=== PATIENT | male | born 1955 | race Caucasian/White ===

== ENCOUNTER 2017-03-18 18:39 | Emergency (ER) | payer BC, SELFPAY ==
[2017-03-18 19:30] VITALS: BP 119/76; PULSE 61; RESP 20; TEMP 37.1; O2SAT 97; BMI 27.3
--- NOTE | 2017-03-18 20:11 | HMH.EDUTC ---
[facility] [place] Clinical Impression: Flu Disposition: Home, Self-Care Condition on Discharge: Good Instructions: DI for Nausea -- Adult, Influenza Additional Instructions: Increase fluids Rest Gregorio diet follow up with primary care tomorrow If symptoms worsen or do not improve return or be seen in the ER Prescriptions: Oseltamivir Phosphate [Tamiflu 75mg Capsule] 75 mg PO BID #10 cap Referrals: Ej Lopez MD [Primary Care Provider] - Medical Decision Making Vital Signs: 03/18/17 19:30 Temperature 98.7 F Temperature Source Temporal Artery Scan Pulse Rate [Brachial] 61 Respiratory Rate 20 Blood Pressure [Right Arm] 119/76 Blood Pressure Mean [Right Arm] 90 Blood Pressure Source [Right Arm] Automatic Cuff Blood Pressure Position [Right Arm] Sitting 02 Sat by Pulse Oximetry 97 Oxygen Delivery Method Room Air - Lab Data Lab Results 03/18/17 20:15: WBC 4.1 L, RBC 4.54 L, Hgb 13.9 L, Hct 40.0 L, MCV 88.2, MCH 30.7, MCHC 34.8, RDW 12.4, Plt Count 175, MPV 7.4, Neut % (Auto) 80.8 H, Lymph % (Auto) 11.9, [place] % (Auto) 5.1, Eos % (Auto) 1.4, Baso % (Auto) 0.8, Neut # (Auto) 3.3, Lymph # (Auto) 0.5 L, [place] # (Auto) 0.2, Eos # (Auto) 0.1, Baso # (Auto) 0.0 03/18/17 20:15: Sodium 134 L, Potassium 4.1, Chloride 97 L, Carbon Dioxide 26, Anion Gap 15.1 H, BUN 18, Creatinine 1.25, Estimated Creat Clear 76, Estimated GFR 59, Est GFR ( Amer) 72, Glucose 109 H, Calcium 8.6, Total Bilirubin 0.5, AST 38 H, ALT 31, Alkaline Phosphatase 81, Total Protein 7.3, Albumin 3.6, Globulin 3.7 H, Albumin/Globulin Ratio 1.0 L 03/18/17 20:36: Influenza Type A Ag Positive A, Influenza Type B Ag Negative Result diagrams: 03/18/17 20:15 03/18/17 20:15 - Madan Inquiry Pt receiving controlled substance: No [facility] [place]PI - General Chief complaint: Urgent [facility] Stated complaint: fever,weakness Time Seen by Provider: 03/18/17 20:11 Mode of Arrival: Ambulatory Source of Information: Patient Limitations: No Limitations Description of Symptoms (Recalled from Triage Doc. by RN): H/A, CONGESTION, DIZZY, BLURRED VISION HEENT Symptoms (Recalled from RN notes): Yes Resp Symptoms (Recalled from RN notes): No Skin Symptoms (Recalled from RN notes): No MS Symptoms (Recalled from RN notes): No Functional Status (Recalled from RN notes): NA - History of Present Illness Provider Complaint: 61-year-old male presents for nasal congestion, sinus pressure, nausea, vomiting ?1, blurred vision and dizzy. Patient states nausea since yesterday states his only vomited one time and it was drainage. Denies fever or headache at this time. - Related Data Previous Rx's Medication Instructions Recorded Oseltamivir Phosphate [Tamiflu 75 mg PO BID #10 cap 03/18/17 75mg Capsule] Allergies Allergy/AdvReac Type Severity Reaction Status Date / Time No Known Allergies Allergy Verified 03/18/17 19:33 - Worker's Comp Is this a Worker's Comp case?: No [facility] History I have reviewed the patient's past medical history: Yes - *Social History Alcohol Intake: never - Psychiatric History Expresses thoughts of harming self/others: None Suicide Plan Description: No Plan ROS Obtained: Yes All systems reviewed & no additional complaints - Constitutional Constitutional: Reports system reviewed and no additional complaints, except as docu, Reports body ache, Reports chills, Reports fever(s), Reports malaise - Eyes Eyes: Reports system reviewed and no additional complaints, except as docu, Reports blurry vision - ENT Ears, Nose, Mouth, and Throat: Reports system reviewed and no additional complaints, except as docu, Reports as per HPI, Reports headache(s), Reports nasal discharge, Reports sinus pain, Reports sinus pressure - Cardiovascular Cardiovascular: Reports system reviewed and no additional complaints, except as docu - Respiratory Respiratory: Yes system reviewed and no additional complaints, except as docu - G
--- NOTE | 2017-03-18 20:14 | ED_ITS ---
[facility] [place] Clinical Impression: Flu Disposition: Home, Self-Care Condition on Discharge: Good Instructions: DI for Nausea -- Adult, Influenza Additional Instructions: Increase fluids Rest Gregorio diet follow up with primary care tomorrow If symptoms worsen or do not improve return or be seen in the ER Prescriptions: Oseltamivir Phosphate [Tamiflu 75mg Capsule] 75 mg PO BID #10 cap Referrals: Ej Lopez MD [Primary Care Provider] - Medical Decision Making Vital Signs: 03/18/17 19:30 Temperature 98.7 F Temperature Source Temporal Artery Scan Pulse Rate [Brachial] 61 Respiratory Rate 20 Blood Pressure [Right Arm] 119/76 Blood Pressure Mean [Right Arm] 90 Blood Pressure Source [Right Arm] Automatic Cuff Blood Pressure Position [Right Arm] Sitting 02 Sat by Pulse Oximetry 97 Oxygen Delivery Method Room Air - Lab Data Lab Results 03/18/17 20:15: WBC 4.1 L, RBC 4.54 L, Hgb 13.9 L, Hct 40.0 L, MCV 88.2, MCH 30.7, MCHC 34.8, RDW 12.4, Plt Count 175, MPV 7.4, Neut % (Auto) 80.8 H, Lymph % (Auto) 11.9, [place] % (Auto) 5.1, Eos % (Auto) 1.4, Baso % (Auto) 0.8, Neut # ( Auto) 3.3, Lymph # (Auto) 0.5 L, [place] # (Auto) 0.2, Eos # (Auto) 0.1, Baso # ( Auto) 0.0 03/18/17 20:15: Sodium 134 L, Potassium 4.1, Chloride 97 L, Carbon Dioxide 26, Anion Gap 15.1 H, BUN 18, Creatinine 1.25, Estimated Creat Clear 76, Estimated GFR 59, Est GFR ( Amer) 72, Glucose 109 H, Calcium 8.6, Total Bilirubin 0.5, AST 38 H, ALT 31, Alkaline Phosphatase 81, Total Protein 7.3, Albumin 3.6, Globulin 3.7 H, Albumin/Globulin Ratio 1.0 L 03/18/17 20:36: Influenza Type A Ag Positive A, Influenza Type B Ag Negative Result diagrams: 03/18/17 20:15 03/18/17 20:15 - Madan Inquiry Pt receiving controlled substance: No [facility] [place] H[place] - General Chief complaint: Urgent Treatment Center Stated complaint: fever,weakness Time Seen by Provider: 03/18/17 20:11 Mode of Arrival: Ambulatory Source of Information: Patient Limitations: No Limitations Description of Symptoms (Recalled from Triage Doc. by RN): H/A, CONGESTION, DIZZY, BLURRED VISION HEENT Symptoms (Recalled from RN notes): Yes Resp Symptoms (Recalled from RN notes): No Skin Symptoms (Recalled from RN notes): No MS Symptoms (Recalled from RN notes): No Functional Status (Recalled from RN notes): NA - History of Present Illness Provider Complaint: 61-year-old male presents for nasal congestion, sinus pressure, nausea, vomiting ?1, blurred vision and dizzy. Patient states nausea since yesterday states his only vomited one time and it was drainage. Denies fever or headache at this time. - Related Data Previous Rx's Medication Instructions Recorded Oseltamivir Phosphate [Tamiflu 75 mg PO BID #10 cap 03/18/17 75mg Capsule] Allergies Allergy/AdvReac Type Severity Reaction Status Date / Time No Known Allergies Allergy Verified 03/18/17 19:33 - Worker's Comp Is this a Worker's Comp case?: No [facility] History I have reviewed the patient's past medical history: Yes - *Social History Alcohol Intake: never - Psychiatric History Expresses thoughts of harming self/others: None Suicide Plan Description: No Plan ROS Obtained: Yes All systems reviewed & no additional complaints - Constitutional Constitutional: Reports system reviewed and no additional complaints, except as do
[2017-03-18 20:27] LABS: Basophils % 0.8 % (0.1-2.0); Eosinophils # 0.1 K/mm3 (0.0-0.4); Eosinophils % 1.4 % (0.1-12.0); Hemoglobin 13.9 g/dL (14.1-18.0); Lymphocytes # 0.5 K/mm3 (0.7-4.5); Lymphocytes % 11.9 K/mm3 (10-50); Mean Corpuscular HGB Conc 34.8 g/dL (31.8-35.4); Mean Corpuscular Hemoglobin 30.7 pg (27.0-31.2); Mean Corpuscular Volume 88.2 fl (80-94); Mean Platelet Volume 7.4 fl (7.4-10.4); Monocytes # 0.2 K/mm3 (0.1-1.0); Monocytes % 5.1 % (1.7-9.3); Neutrophils # 3.3 K/mm3 (1.8-7.8); Neutrophils % 80.8 % (37.0-80.0); Platelet Count 175 K/mm3 (142-424); Red Blood Count 4.54 M/mm3 (4.60-6.20); Red Cell Distribution Width 12.4 % (11.5-17.5); White Blood Count 4.1 K/mm3 (4.8-10.8)
[2017-03-18 20:38] LABS: UTC Influenza A Antigen Positive (Negative); UTC Influenza B Antigen Negative (Negative)
[2017-03-18 20:39] LABS: Alanine Aminotransferase 31 U/L (12-78); Albumin Level 3.6 gm/dL (3.4-5.0); Alkaline Phosphatase 81 U/L (46-116); Anion Gap 15.1 mEq/L (5-15); Aspartate Amino Transferase 38 U/L (15-37); Bilirubin,Total 0.5 mg/dL (0.2-1.0); Blood Urea Nitrogen 18 mg/dL (7-18); Calcium 8.6 mg/dL (8.5-10.1); Carbon Dioxide 26 mmol/L (21.0-32.0); Chloride 97 mmol/L (98-107); Creatinine Clearance Estimated 76 mL/min (0-300); Creatinine,Serum 1.25 mg/dL (0.70-1.30); Estimated Glomerular Filt Rate 59 ml/min (>60); GFR (African American) 72 ML/MIN (>60); Globulin 3.7 gm/dl (1.3-3.2); Glucose 109 mg/dL (74-106); Potassium 4.1 mmoL/L (3.5-5.1); Sodium 134 mmol/L (136-145); Total Protein,Serum 7.3 gm/dL (6.4-8.2)
== END 2017-03-18 20:56 | disposition home or self-care (01) ==
PROVIDERS: Emergency Provider Nurse Practitioner Family; Family Provider Internal Medicine Adolescent Medicine; PCP Internal Medicine Adolescent Medicine
DX: J11.1 Influenza due to unidentified influenza virus with other respiratory manifestations (principal)
CPT/HCPCS: 36415; 80053; 85025; 87804; 99201